=== PATIENT | female | born 1995 | race African-American/Black ===

== ENCOUNTER 2021-04-29 04:21 | Observation (INO) | payer MEDICAID ==
[~2021-04-29] VITALS: Ht 157.5 cm; Wt 104.3 kg
== END 2021-04-29 06:05 | disposition home or self-care (01) ==
LOC: 8 EST LDRP 04:21
PROVIDERS: ADMIT Specialist; ATTEND Specialist
DX: O62.9 Abnormality of forces of labor, unspecified (principal); Z3A.37 37 weeks gestation of pregnancy
CPT/HCPCS: 59025; G0378; 99281

== ENCOUNTER 2021-05-21 15:16 | Observation (INO) | payer MEDICAID ==
[~2021-05-21] VITALS: Ht 157.5 cm; Wt 99.8 kg
== END 2021-05-21 17:50 | disposition home or self-care (01) ==
LOC: 8 EST LDRP 15:16
PROVIDERS: ADMIT Obstetrics & Gynecology; ATTEND Obstetrics & Gynecology
DX: O26.893 Other specified pregnancy related conditions, third trimester (principal); R10.30 Lower abdominal pain, unspecified; O99.891 Other specified diseases and conditions complicating pregnancy; M54.9 Dorsalgia, unspecified; Z3A.39 39 weeks gestation of pregnancy
CPT/HCPCS: 59025; 76805; 76818; G0378; 99281; G0379

== ENCOUNTER 2021-05-24 10:56 | Observation (INO) | payer MEDICAID ==
[~2021-05-24] VITALS: Ht 157.5 cm; Wt 99.8 kg
[2021-05-24 12:36] LABS: BASOPHILS % 0.1 % (0.0-2.0); EOSINOPHILS % 0.2 % (0.0-5.0); HEMATOCRIT. 35.5 % (36.0-48.0); HEMOGLOBIN. 11.4 g/dL (12.0-16.0); LYMPHOCYTES % 22.7 % (20.0-50.0); MEAN CORPUSCULAR HEMOGLOBIN 28.2 pg (28.0-32.0); MEAN CORPUSCULAR VOLUME 87.6 fL (81.0-99.0); MEAN PLATELET VOLUME 8.3 fl (7.4-10.4); MONOCYTES % 8.8 % (2.0-8.0); NEUTROPHILS % 68.2 % (40.0-76.0); PLATELET 306 x1000/uL (130-400); RED BLOOD CELL COUNT 4.06 mill/uL (4.2-5.4); RED CELL DISTRIBUTION WIDTH 14.5 % (11.6-14.6)
[2021-05-24 12:38] LABS: CLARITY URINE CLOUDY (CLEAR); COLOR URINE DARK YELLOW (YELLOW); KETONES URINE 3+ (NEGATIVE); LEUKOCYTE ESTERASE URINE 1+ (NEGATIVE); NITRITE URINE NEGATIVE (NEGATIVE); OCCULT BLOOD URINE 3+ (NEGATIVE); PROTEIN URINE 2+ (NEGATIVE); SPECIFIC GRAVITY URINE 1.029 (1.005-1.030)
[2021-05-24] MEDS: LACTATED RINGERS 1,000 ML IV SCH ×2 (12:38→12:41)
[2021-05-24 12:48] LABS: INR 0.9; PARTIAL THROMBOPLASTIN TIME 32.8 sec (23.4-31.0); PROTHROMBIN TIME 9.3 sec (9.6-11.0)
[2021-05-24 12:56] LABS: *COCAINE SCREEN URINE NEGATIVE (NEGATIVE)
[2021-05-24 12:57] LABS: *AMPHETAMINES SCREEN URINE NEGATIVE (NEGATIVE); METHADONE URINE SCREEN NEGATIVE (NEGATIVE); OPIATES URINE SCREEN NEGATIVE (NEGATIVE); PHENCYCLIDINE URINE SCREEN NEGATIVE (NEGATIVE)
[2021-05-24 12:58] LABS: *BARBITURATES SCREEN URINE NEGATIVE (NEGATIVE); *BENZODIAZEPINES SCREEN URINE NEGATIVE (NEGATIVE)
[2021-05-24 13:03] LABS: CANNABINOID URINE SCREEN PRESUMTIVE POSITIVE (NEGATIVE)
[2021-05-24 13:15] LABS: HEPATITIS B SURFACE ANTIGEN NEGATIVE
[2021-06-17 07:10] LABS: CANNABINOID CONFIRMATION URINE Positive (.)
== END 2021-05-24 14:15 | disposition home or self-care (01) ==
LOC: 8 EST LDRP 10:56
PROVIDERS: ADMIT Specialist; ATTEND Specialist
DX: O26.893 Other specified pregnancy related conditions, third trimester (principal); R10.9 Unspecified abdominal pain; O48.0 Post-term pregnancy; Z20.822 Contact with and (suspected) exposure to COVID-19; Z79.899 Other long term (current) drug therapy; Z79.01 Long term (current) use of anticoagulants; Z3A.40 40 weeks gestation of pregnancy
CPT/HCPCS: 36415; 59025; 76805; 76818; 80305; 80349; 81003; 85025; 85610; 85730; 86592; 86703; 86762; 86850; 86900; 86901; 87086; 87340; 87426; 96360; 96361; G0378; J7120; 99281; G0379